=== PATIENT | female | born 1940 | race Caucasian/White ===

== ENCOUNTER 2017-06-12 10:16 | Day surgery (SDC) | payer MEDICARE, BC ==
[2017-06-12] MEDS ORDERED: Gatifloxacin 0.5% Ophth Soln 2.5 ML Bot EYERT SCH (10:30)
[2017-06-12] MEDS ORDERED: Sodium Chloride 0.9% 5 ML Syringe FLUSH PRN (10:30)
[2017-06-12] MEDS ORDERED: Lactated Ringers 1,000 ML IV SCH (10:30)
[2017-06-12] MEDS ORDERED: Albuterol/Ipratropium 3.0-0.5 MG/3 ML Neb Soln NEB ONE (10:50)
[2017-06-12] MEDS: Phenylephrine 10% Ophth Soln 5 ML Bot EYERT SCH ×3 (11:00→11:49)
[2017-06-12] MEDS ORDERED: Water For Irrigation,Sterile 1,500 ML Container IRR ONE (12:57)
[2017-06-12] MEDS ORDERED: Balanced Salt Solution Ophth Irrig 15 ML Bottle EYERT ONE (12:57)
[2017-06-12] MEDS ORDERED: Dexamethasone/Neomycin/Polymyxin B Ophth Oint 3.5 GM Tube EYERT ONE (12:58)
[2017-06-12] MEDS ORDERED: Balanced Salt Solution Plus Ophth Irrig 500 ML Bottle IOCULAR ONE (12:58)
[2017-06-12] MEDS ORDERED: Carbachol 0.01% Intraocular 1.5 ML Vial EYERT ONE (12:58)
[2017-06-12] MEDS ORDERED: EPINEPHrine 1 MG/ML SDV ONE (12:58)
[2017-06-12] MEDS ORDERED: Lidocaine 1% 10 ML MDV INJECT ONE (12:59)
[2017-06-12] MEDS ORDERED: Hyaluronate Sodium 1% 0.85 ML Syringe IOCULAR ONE (12:59)
[2017-06-12] MEDS ORDERED: Lidocaine 2% with EPINEPHrine 1:100,000 20 ML MDV INJECT ONE (12:59)
[2017-06-12] MEDS ORDERED: Tetracaine HCl/PF 0.5% 4 ML Bottle EYEBOTH ONE (13:00)
[2017-06-12 13:55] VITALS: BP 144/61
== END 2017-06-12 13:45 | disposition home or self-care (01) ==
LOC: KA.SDS 10:16
PROVIDERS: ATTEND Ophthalmology
DX: H25.811 Combined forms of age-related cataract, right eye (principal); J44.9 Chronic obstructive pulmonary disease, unspecified; I10 Essential (primary) hypertension; F32.9 Major depressive disorder, single episode, unspecified; Z79.899 Other long term (current) drug therapy; F17.210 Nicotine dependence, cigarettes, uncomplicated
CPT/HCPCS: 66984; A9270; J0171; J7120; 00142; C1780

== ENCOUNTER 2017-07-10 08:59 | Day surgery (SDC) | payer MEDICARE, BC ==
[2017-07-10] MEDS ORDERED: Gatifloxacin 0.5% Ophth Soln 2.5 ML Bot EYELF SCH (09:00)
[2017-07-10] MEDS ORDERED: Sodium Chloride 0.9% 5 ML Syringe FLUSH PRN (09:00)
[2017-07-10] MEDS ORDERED: Lactated Ringers 1,000 ML IV SCH (09:00)
[2017-07-10] MEDS: Phenylephrine 10% Ophth Soln 5 ML Bot EYELF SCH ×3 (09:11→09:42)
[2017-07-10] MEDS: Cyclopentolate 1% Opth Soln 2 ML Bottle EYELF SCH ×3 (09:21→09:52)
[2017-07-10] MEDS ORDERED: Balanced Salt Solution Ophth Irrig 15 ML Bottle EYELF ONE (10:47)
[2017-07-10] MEDS ORDERED: Balanced Salt Solution Plus Ophth Irrig 500 ML Bottle IOCULAR ONE (10:47)
[2017-07-10] MEDS ORDERED: Water For Irrigation,Sterile 1,500 ML Container IRR ONE (10:47)
[2017-07-10] MEDS ORDERED: Dexamethasone/Neomycin/Polymyxin B Ophth Oint 3.5 GM Tube EYELF ONE (10:48)
[2017-07-10] MEDS ORDERED: Lidocaine 2% with EPINEPHrine 1:100,000 20 ML MDV INJECT ONE (10:48)
[2017-07-10] MEDS ORDERED: EPINEPHrine 1 MG/ML SDV ONE (10:48)
[2017-07-10] MEDS ORDERED: Carbachol 0.01% Intraocular 1.5 ML Vial EYELF ONE (10:48)
[2017-07-10] MEDS ORDERED: Hyaluronate Sodium 1% 0.85 ML Syringe IOCULAR ONE (10:49)
[2017-07-10] MEDS ORDERED: Lidocaine 1% 10 ML MDV INJECT ONE (10:49)
[2017-07-10] MEDS ORDERED: Tetracaine HCl/PF 0.5% 4 ML Bottle EYEBOTH ONE (10:49)
[2017-07-10 11:20] VITALS: BP 143/61
--- NOTE | 2017-07-11 08:29 | OR ---
DATE OF SURGERY: 07/10/2017 SURGEON: Federico Polanco MD PREOPERATIVE DIAGNOSIS: Cataract, left eye. POSTOPERATIVE DIAGNOSIS: Cataract, left eye. OPERATION PERFORMED: Phacoemulsification with posterior chamber lens insertion, left eye. HISTORY: The patient presents with difficulty and increasing amount of blurred vision particularly with oncoming car light. Her vision is 20/100 plus only for the left eye, best corrected, and her type of cataract is listed as combined and it is also listed as senile. FINDINGS: The patient was taken to the operating room where appropriate anesthesia, sedation and monitoring were provided. A retrobulbar block was given on the left side. The eye was massaged and was found to be appropriately soft. The eye and eyelids were then prepped and draped in the usual sterile manner. A lid speculum was placed. A micro sharp blade was used to enter the anterior chamber inside the limbus inferior-temporally. Xylocaine was irrigated into the eye at this site. Healon was irrigated into the eye through this site. Then using a 2.85 mm corneal blade an entry was made into the anterior chamber just inside the limbus temporally. Healon was again irrigated into the eye. Then using a cystitome, the anterior capsulorrhexis was created. The lens nucleus was hydrodissected using a 27 gauge cannula and balanced salt solution. The phacoemulsification unit was introduced through the temporal site and the Alon spatula through the inferior temporal site. In so doing, the lens nucleus was phacoemulsified. The cortical fragments of the lens were removed using the irrigation aspiration unit. The posterior capsule was polished. Healon was irrigated into the eye. The posterior chamber lens was inserted and rotated into position inside the capsular bag. The Healon was irrigated out of the eye. Miostat was irrigated into the eye and the pupil rounded nicely. A single interrupted 10-0 Nylon suture was placed through the temporal corneal incision site. Balanced salt solution was irrigated into the eye. The wound was tested and found to be tight. Maxitrol ointment was placed into the patient's left eye. The eyelids were closed and an eye patch and barnard shield were placed. The patient left the operating room in good condition. /[id number]/MODL
== END 2017-07-10 11:43 | disposition home or self-care (01) ==
LOC: KA.SDS 08:59
PROVIDERS: ATTEND Ophthalmology
DX: H25.812 Combined forms of age-related cataract, left eye (principal); J44.9 Chronic obstructive pulmonary disease, unspecified; I10 Essential (primary) hypertension; F32.1 Major depressive disorder, single episode, moderate; G89.29 Other chronic pain; M54.5 Low back pain; Z79.899 Other long term (current) drug therapy
CPT/HCPCS: 66984; A9270; C1780; J0171; J7120; 00142

== ENCOUNTER 2017-11-23 14:55 | Inpatient (IN) | payer MEDICARE, BC ==
[2017-11-23] MEDS ORDERED: Lidocaine 2% 100 MG/5 ML Syringe IVPUSH PRN (15:18)
[2017-11-23] MEDS ORDERED: Nitroglycerin 0.4 MG Tab.SL SL PRN (15:18)
[2017-11-23] MEDS ORDERED: EPINEPHrine 1:10,000 1 MG/10 ML Syringe IVPUSH PRN (15:18)
[2017-11-23] MEDS ORDERED: Atropine 0.1 MG/ML 10 ML Syringe IVPUSH PRN (15:18)
[2017-11-23 16:58] LABS: CHLORIDE,CL 101 mmol/L (98-115); SODIUM,NA 141 mmol/L (136-145)
[2017-11-23] MEDS ORDERED: Albuterol 0.083% 2.5 MG/3 ML Neb Soln NEB PRN ×2 (17:21→17:55)
[2017-11-23] MEDS ORDERED: [UNRECOGNIZED DRUG - OTHER] TOP PRN (17:22)
[2017-11-23] MEDS ORDERED: Ibuprofen 400 MG Tab PO PRN (17:32)
[2017-11-23] MEDS ORDERED: Nicotine 7 MG/24 Hr Patch TRDERM PRN (17:55)
[2017-11-23] MEDS ORDERED: Metoprolol Tartrate 5 MG/5 ML SDV IVPUSH ONE (17:56)
[2017-11-23] MEDS ORDERED: Albuterol HFA 18 Gm Inhaler INH SCH (18:00)
[2017-11-23] MEDS ORDERED: Metoprolol Tartrate 5 MG/5 ML SDV ONE (18:06)
[2017-11-23] MEDS: Metoprolol Tartrate 25 MG Tab PO SCH (21:28)
[2017-11-23] MEDS ORDERED: Acetaminophen 500 MG Tab PO ONE (21:42)
[2017-11-23] MEDS ORDERED: diphenhydrAMINE 25 MG Cap PO ONE (21:48)
[2017-11-24 07:44] LABS: CHLORIDE,CL 102 mmol/L (98-115); SODIUM,NA 144 mmol/L (136-145)
[2017-11-24] MEDS ORDERED: Enoxaparin 40 MG/0.4 ML Syringe SUBCUT SCH (09:00)
[2017-11-24] MEDS ORDERED: [UNRECOGNIZED DRUG - REMARK] IH SCH (09:00)
[2017-11-24] MEDS: Sertraline 50 MG Tab PO SCH (09:16)
[2017-11-24] MEDS: Metoprolol Tartrate 25 MG Tab PO SCH (09:17)
--- NOTE | 2017-11-24 12:11 | PCM.PN ---
- General Info Date of Service: 11/24/17 Subjective Update: Mrs. Euceda reports ongoing weakness and fatigue, stable from prior, and no other concerns this morning. Eating and drinking without difficulty. Last evening had difficulty voiding and had catheter placed, but now voiding well. Breathing is stable, labored with exertion, and with occasional wheezing and shortness of breath. Denies other concerns, including fever, chills, headache, vision changes, lightheadedness, dizziness, chest pain, productive cough, abdominal pain, diarrhea. No nursing concerns. - Patient Data Vitals - Most Recent: Last Vital Signs Temp 36.3 C 11/24/17 11:00 Pulse 85 11/24/17 11:00 Resp 28 H 11/24/17 11:00 BP 100/65 11/24/17 11:00 Pulse Ox 96 11/24/17 11:00 Weight - Most Recent: 81.647 kg I&O - Last 24 Hours: Intake & Output 11/23/17 11/24/17 11/24/17 22:59 06:59 14:59 Intake Total 420 0 Output Total 50 600 Balance 370 -600 Lab Results Last 24 Hours: Laboratory Results - last 24 hr 11/23/17 11/23/17 11/23/17 Range/Units 16:25 16:25 16:25 WBC 7.7 (5.0-10.0) 10^3/uL RBC 4.27 (3.80-5.50) 10^6/uL Hgb 13.2 (12.0-16.0) g/dL Hct 40.9 (37.0-47.0) % MCV 95.8 H (82.0-92.0) fL MCH 30.8 (27.0-31.0) pg MCHC 32.2 (32.0-36.0) g/dL RDW 13.7 (11.5-14.5) % Plt Count 253 (150-300) 10^3/uL MPV 6.4 L (7.4-10.4) fL Neut % (Auto) 82.3 H (50.0-70.0) % Lymph % (Auto) 8.7 L (20.0-40.0) % Dane % (Auto) 7.7 (2.0-8.0) % Eos % (Auto) 0.6 L (1.0-3.0) % Baso % (Auto) 0.7 (0.0-1.0) % Neut # (Auto) 6.3 (2.5-7.0) 10^3/uL Lymph # (Auto) 0.7 L (1.0-4.0) 10^3/uL Dane # (Auto) 0.6 (0.1-0.8) 10^3/uL Eos # (Auto) 0.0 L (0.1-0.3) 10^3/uL Baso # (Auto) 0.1 (0.0-0.1) 10^3/uL Sodium 141 (136-145) mmol/L Potassium 4.2 (3.3-5.3) mmol/L Chloride 101 (98-115) mmol/L Carbon Dioxide 34.7 H (21.0-32.0) mmol/L BUN 23 (6-25) mg/dL Creatinine 0.58 (0.51-1.17) mg/dL Est Cr Clr Drug Dosing 86.24 mL/min Estimated GFR (MDRD) > 60 mL/min Glucose 136 H (70-110) mg/dL Calcium 9.4 (8.7-10.3) mg/dL Total Bilirubin 0.2 (0.2-1.0) mg/dL AST 15 (15-37) U/L ALT 16 (12-78) U/L Alkaline Phosphatase 47 (46-116) IU/L Troponin I 0.04 (0.00-0.070) ng/mL B-Natriuretic Peptide 212 H (0-100) pg/mL Total Protein 7.3 (6.4-8.2) g/dL Albumin 3.32 (3.00-4.80) g/dL TSH, Ultra Sensitive 0.590 (0.340-4.820) uIU/mL Specimen Type Urine Color (YELLOW) Urine Appearance (CLEAR) Urine pH (5.0-9.0) Ur Specific [place] (1.005-1.030) Urine Protein (NEGATIVE) mg/dL Urine Glucose (UA) (NEGATIVE) mg/dL Urine Ketones (NEGATIVE) mg/dL Urine Occult Blood (NEGATIVE) Urine Nitrite (NEGATIVE) Urine Bilirubin (NEGATIVE) Urine Urobilinogen (0.2-1.0) E.U./dL Ur Leukocyte Esterase (NEGATIVE) Urine RBC /HPF Urine WBC /HPF Ur Epithelial Cells /LPF Urine Bacteria (NONE TO FEW) /HPF 11/23/17 11/24/17 Range/Units 22:50 07:15 WBC (5.0-10.0) 10^3/uL RBC (3.80-5.50) 10^6/uL Hgb (12.0-16.0) g/dL Hct (37.0-47.0) % MCV (82.0-92.0) fL MCH (27.0-31.0) pg MCHC (32.0-36.0) g/dL RDW (11.5-14.5) % Plt Count (150-300) 10^3/uL MPV (7.4-10.4) fL Neut % (Auto) (50.0-70.0) % Lymph % (Auto) (20.0-40.0) % Dane % (Auto) (2.0-8.0) % Eos % (Auto) (1.0-3.0) % Baso % (Auto) (0.0-1.0) % Neut # (Auto) (2.5-7.0) 10^3/uL Lymph # (Auto) (1.0-4.0) 10^3/uL Dane # (Auto) (0.1-0.8) 10^3/uL Eos # (Auto) (0.1-0.3) 10^3/uL Baso # (Auto) (0.0-0.1) 10^3/uL Sodium 144 (136-145) mmol/L Potassium 4.1 (3.3-5.3) mmol/L Chloride 102 (98-115) mmol/L Carbon Dioxide 36.9 H (21.0-32.0) mmol/L BUN 22 (6-25) mg/dL Creatinine 0.58 (0.51-1.17) mg/dL Est Cr Clr Drug Dosing 86.24 mL/min Estimated GFR (MDRD) > 60 mL/min Glucose 109 (70-110) mg/dL Calcium 8.7 (8.7-10.3) mg/dL Total Bilirubin (0.2-1.0) mg/dL AST (15-37) U/L ALT (12-78) U/L Alkaline Phosphatase (46-116) IU/L Troponin I (0.00-0.070) ng/mL B-Natriuretic Peptide (0-100) pg/mL Total Protein (6.4-8.2) g/dL Albumin (3.00-4.80) g/dL TSH, Ultra Sensitive (0.340-4.820) uIU/mL Specimen Type Urinvoid Urine Color Yellow (YELLOW) Urine Appearance Clear (CLEAR) Urine pH 7.0 (5.0-9.0) Ur Specific [place] 1.015 (1.005-1.030) Urine Protein 30 H (NEGATIVE) mg/dL Urine Glucose (UA) Negative (NEGATIVE) mg/dL Urine Ketones Negative (NEGATIVE) mg/dL Urine Occult Blood Negative (NEGATIVE) Urine Nitrite Negative (NEGATIVE) Urine Bilirubin Small H (NEGATIVE) Urine Urobilinogen 0.2 (0.2-1.0) E.U./dL Ur Leukocyte Esterase Negative (NEGATIVE) Urine RBC 0-5 /HPF Urine WBC 0-5 /HPF Ur Epithelial Cells Rare /LPF Urine Bacteria Occasional (NONE TO FEW) /HPF Med Orders - Current: Current Medications Acetaminophen (Tylenol Extra Strength) 1,000 mg PO BEDTIME POP Acetaminophen (Tylenol) 325 mg PO Q6H PRN PRN Reason: Pain Albuterol (Proventil Neb Soln) 2.5 mg NEB Q4HRRT PRN PRN Reason: Shortness of Breath Atropine Sulfate (Atropine 0.1 Mg/Ml) 0 mg IVPUSH ASDIRECTED PRN PRN Reason: Heart Epinephrine HCl (Epinephrine 1:10,000) 1 mg IVPUSH ASDIRECTED PRN PRN Reason: Heart Lidocaine HCl (Xylocaine 2%) 0 mg IVPUSH ASDIRECTED PRN PRN Reason: Heart Melatonin (Melatonin) 6 mg PO BEDTIME POP Metoprolol Tartrate (Lopressor) 50 mg PO BID POP Nicotine (Habitrol) 7 mg TRDERM DAILY PRN PRN Reason: nicotine craving Nitroglycerin (Nitrostat) 0.4 mg SL ASDIRECTED PRN PRN Reason: Heart Non-Formulary (Stiolto Respimat) 0 each INH DAILY POP Rivaroxaban (Xarelto) 20 mg PO 1800 POP Sertraline HCl (Zoloft) 100 mg PO DAILY [facility] Last Admin: 11/24/17 09:16 Dose: 100 mg Sodium Chloride (Syrex Flush) 5 ml FLUSH Q8HR PRN PRN Reason: Keep Vein Open Discontinued Medications Acetaminophen (Tylenol Extra Strength) 1,000 mg PO ONETIME ONE Stop: 11/23/17 21:43 Last Admin: 11/23/17 22:07 Dose: 1,000 mg Albuterol (Ventolin Hfa) 0 gm INH Q4H [facility] Albuterol (Proventil Neb Soln) 2.5 mg NEB QIDRT PRN PRN Reason: Shortness of Breath Diphenhydramine HCl (Benadryl) 50 mg PO ONETIME ONE Stop: 11/23/17 21:49 Last Admin: 11/23/17 22:08 Dose: 50 mg Enoxaparin Sodium (Lovenox) 40 mg SUBCUT DAILY [facility] Last Admin: 11/24/17 09:17 Dose: 40 mg Ibuprofen (Motrin) 800 mg PO BIDMEALS PRN PRN Reason: PAIN Metoprolol Tartrate (Lopressor) 2.5 mg IVPUSH ONETIME ONE Stop: 11/23/17 17:57 Last Admin: 11/23/17 18:10 Dose: 2.5 mg Metoprolol Tartrate (Lopressor) 25 mg PO BID [facility] Last Admin: 11/24/17 09:17 Dose: 25 mg Metoprolol Tartrate (Lopressor) Confirm Administered Dose 5 mg .ROUTE .STK-MED ONE Stop: 11/23/17 18:07 Last Admin: 11/23/17 18:09 Dose: Not Given Non-FormularyRup (Rub) 1 applic TOP BID PRN PRN Reason: Pain - Exam Physical Findings Comments:: GENERAL: Well-appearing elderly white female sitting in wheelchair at bedside in no acute distress. HEENT: Normocephalic, atraumatic. Conjunctiva clear. Nares patent without discharge. Mucous membranes moist, posterior pharynx unremarkable. NECK: Supple, no masses. CV: Irregularly irregular, no murmurs, rubs, or gallops. 2+ radial pulses. PULMONARY: Normal effort, diminished airflow at bases, occasional scattered expiratory wheeze, no rales or rhonchi. ABDOMEN: Positive bowel sounds, soft, nontender, nondistended. EXTREMITIES: 1+ edema to mid-lala bilaterally, finger clubbing. MUSCULOSKELETAL: Moves all extremities well. NEUROLOGICAL: No obvious deficits. DERMATOLOGIC: No rashes or suspicious lesions in exposed areas. PSYCHIATRIC: Alert, interactive, mildly cantankerous affect. - Problem List Review Problem List Initiated/Reviewed/Updated: Yes - My Orders Last 24 Hours: My Active Orders 11/23/17 17:55 Albuterol [Proventil Neb Soln] 2.5 mg NEB Q4HRRT PRN Nicotine [Habitrol] 7 mg TRDERM DAILY PRN 11/23/17 18:00 PT Evaluation and Treatment [CONS] Routine 11/24/17 08:00 Chest wo Cont [CT] Routine 11/24/17 12:08 Acetaminophen [Tylenol] 325 mg PO Q6H PRN 11/24/17 18:00 Rivaroxaban [Xarelto] 20 mg PO 1800 11/24/17 21:00 Acetaminophen [Tylenol Extra Strength] 1,000 mg PO BEDTIME Melatonin 6 mg PO BEDTIME Metoprolol Tartrate [Lopressor] 50 mg PO BID - Plan Plan:: HPI summary: 77yoF with history notable for stage 4 COPD on oxygen, HTN, tobacco dependence, and medication nonadherence who [facility] and was noted to have tachycardia for which she was admitted and found to have new-onset atrial fibrillation with RVR. Hospitalization problems: # Atrial fibrillation with RVR: New onset with rate in the low-100s on presentation. Metoprolol IV 2.5mg given on 11/23 PM with improvement to pulse < 100 and started on metoprolol tartrate 11/23 PM. No obvious etiology: EKG unremarkable except atrial fibrillation, troponin negative, CBC/CMP/TSH unremarkable for etiology. CHADS-Vasc = 4. # Hypertension: Has been taking lisinopril 5mg as outpatient. BPs low-normal for which lisinopril held on admission. Furosemide on outpatient medication list , but patient confirmed she hasn't been taking.# Chronic hypoxic and hypercarbic respiratory failure: 3lpm via nasal cannula at baseline. Elevated CO2 on metabolic panel. At baseline. # COPD, stage 4 GOLD: Followed by pulmonology, Dr. Das, [facility]. Has not been using Stiolto as outpatient. No evidence of exacerbation. # Right hilar fullness/hx pulmonary nodules: Due for repeat CT chest, which was ordered to obtain today. # Debility - Increase metoprolol tartrate to 50mg po BID due to ongoing pulse spikes into the low-100s - Start rivaroxaban; Discussed indication for anticoagulation and she wishes to proceed with DOAC - Continue oxygen, Stiolto, albuterol prn - Await CT chest results - Physical therapy referral - Echocardiogram as outpatient Chronic, stable conditions: # OA: Tylenol prn. Ibuprofen discontinued due to initiation of anticoagulation. # Depression: Sertraline. # Insomnia: Takes Tylenol PM at home. Will continue Tylenol 1000mg qHS along with melatonin 6mg. # Tobacco dependence: Continues to smoke occasionally. Pre-contemplative stage of change. Nicotine patch prn. Hospitalization details: # FEN: No IVF. Electrolytes normal. Cardiac diet. # PPX: Therapeutic anticoagulation initiated, as above. # Code status: DNR. # Emergency contact: , who was updated by nursing staff this morning. # Disposition: Continue on inpatient status. Plan for discharge to SNF pending clinical improvement and stability and physical therapy assessment.
[2017-11-24] MEDS: STIOLTO RESPIMAT INH SCH (14:25)
[2017-11-24] MEDS ORDERED: Metoprolol Tartrate 25 MG Tab PO ONE (14:37)
[2017-11-24] MEDS: Rivaroxaban 10 MG Tab PO SCH (18:46)
[2017-11-24] MEDS: Melatonin 3 MG Tab PO SCH (21:01)
[2017-11-24] MEDS: Acetaminophen 500 MG Tab PO SCH (21:01)
[2017-11-24] MEDS: Metoprolol Tartrate 50 MG Tab PO SCH (21:02)
[2017-11-25] MEDS: Sertraline 50 MG Tab PO SCH (08:23)
[2017-11-25] MEDS: STIOLTO RESPIMAT INH SCH (08:37)
[2017-11-25] MEDS: Sodium Chloride 0.9% 5 ML Syringe FLUSH PRN (08:39)
[2017-11-25] MEDS: Metoprolol Tartrate 50 MG Tab PO SCH ×2 (10:25→20:21)
--- NOTE | 2017-11-25 11:47 | PCM.PN ---
- General Info Date of Service: 11/25/17 Subjective Update: Mrs. Euceda reports ongoing weakness and fatigue, stable from prior, and no other concerns this morning. Eating and drinking without difficulty. Hasn't been able to successfully void on her own since catheter removal yesterday. Denies this being an issue at home, but states she "tries going to the bathroom a lot, but doesn't go most of the time." Breathing is stable, labored with exertion, and with occasional wheezing and shortness of breath. states that she hasn't been compliant with "much of anything" at home lately and expresses concern over thinking he should have tried to get her in the [place] [facility] sooner, as he has had increasing difficulty caring for her at home. Nursing attempted straight catheterization, but there was subsequent clogging of the catheter. Physical therapy evaluated and noted significant debility. - Patient Data Vitals - Most Recent: Last Vital Signs Temp 36.3 C 11/25/17 11:00 Pulse 84 11/25/17 11:00 Resp 24 H 11/25/17 11:00 BP 96/67 11/25/17 11:00 Pulse Ox 97 11/25/17 11:00 Weight - Most Recent: 81.329 kg I&O - Last 24 Hours: Intake & Output 11/24/17 11/25/17 11/25/17 22:59 06:59 14:59 Intake Total 490 150 Output Total 0 0 Balance 490 150 Lab Results Last 24 Hours: Laboratory Results - last 24 hr 11/25/17 Range/Units 11:20 Specimen Type Urinfol Urine Color Yellow (YELLOW) Urine Appearance Clear (CLEAR) Urine pH 6.0 (5.0-9.0) Ur Specific [place] 1.025 (1.005-1.030) Urine Protein 100 H (NEGATIVE) mg/dL Urine Glucose (UA) Negative (NEGATIVE) mg/dL Urine Ketones Negative (NEGATIVE) mg/dL Urine Occult Blood Negative (NEGATIVE) Urine Nitrite Negative (NEGATIVE) Urine Bilirubin Small H (NEGATIVE) Urine Urobilinogen 0.2 (0.2-1.0) E.U./dL Ur Leukocyte Esterase Negative (NEGATIVE) Urine RBC 0-5 /HPF Urine WBC 5-10 H /HPF Ur Epithelial Cells Rare /LPF Urine Bacteria Occasional (NONE TO FEW) /HPF Hyaline Casts Moderate H (NEGATIVE) /LPF Urine Mucus Moderate H (NEGATIVE) /LPF Med Orders - Current: Current Medications Acetaminophen (Tylenol Extra Strength) 1,000 mg PO BEDTIME [facility] Last Admin: 11/24/17 21:01 Dose: 1,000 mg Acetaminophen (Tylenol) 325 mg PO Q6H PRN PRN Reason: Pain Albuterol (Proventil Neb Soln) 2.5 mg NEB Q4HRRT PRN PRN Reason: Shortness of Breath Last Admin: 11/24/17 21:06 Dose: 2.5 mg Atropine Sulfate (Atropine 0.1 Mg/Ml) 0 mg IVPUSH ASDIRECTED PRN PRN Reason: Heart Epinephrine HCl (Epinephrine 1:10,000) 1 mg IVPUSH ASDIRECTED PRN PRN Reason: Heart Lidocaine HCl (Xylocaine 2%) 0 mg IVPUSH ASDIRECTED PRN PRN Reason: Heart Melatonin (Melatonin) 6 mg PO BEDTIME [facility] Last Admin: 11/24/17 21:01 Dose: 6 mg Metoprolol Tartrate (Lopressor) 50 mg PO BID [facility] Last Admin: 11/25/17 10:25 Dose: 50 mg Nicotine (Habitrol) 7 mg TRDERM DAILY PRN PRN Reason: nicotine craving Nitroglycerin (Nitrostat) 0.4 mg SL ASDIRECTED PRN PRN Reason: Heart Stiolto Respimat (Own Med) 0 each INH DAILY [facility] Last Admin: 11/25/17 08:37 Dose: 2 each Rivaroxaban (Xarelto) 20 mg PO DAILY@1800 [facility] Last Admin: 11/24/17 18:46 Dose: 20 mg Sertraline HCl (Zoloft) 100 mg PO DAILY [facility] Last Admin: 11/25/17 08:23 Dose: 100 mg Sodium Chloride (Syrex Flush) 5 ml FLUSH Q8HR PRN PRN Reason: Keep Vein Open Last Admin: 11/25/17 08:39 Dose: 5 ml Discontinued Medications Acetaminophen (Tylenol Extra Strength) 1,000 mg PO ONETIME ONE Stop: 11/23/17 21:43 Last Admin: 11/23/17 22:07 Dose: 1,000 mg Albuterol (Ventolin Hfa) 0 gm INH Q4H [facility] Albuterol (Proventil Neb Soln) 2.5 mg NEB QIDRT PRN PRN Reason: Shortness of Breath Diphenhydramine HCl (Benadryl) 50 mg PO ONETIME ONE Stop: 11/23/17 21:49 Last Admin: 11/23/17 22:08 Dose: 50 mg Enoxaparin Sodium (Lovenox) 40 mg SUBCUT DAILY [facility] Last Admin: 11/24/17 09:17 Dose: 40 mg Ibuprofen (Motrin) 800 mg PO BIDMEALS PRN PRN Reason: PAIN Metoprolol Tartrate (Lopressor) 2.5 mg IVPUSH ONETIME ONE Stop: 11/23/17 17:57 Last Admin: 11/23/17 18:10 Dose: 2.5 mg Metoprolol Tartrate (Lopressor) 25 mg PO BID [facility] Last Admin: 11/24/17 09:17 Dose: 25 mg Metoprolol Tartrate (Lopressor) Confirm Administered Dose 5 mg .ROUTE .STK-MED ONE Stop: 11/23/17 18:07 Last Admin: 11/23/17 18:09 Dose: Not Given Metoprolol Tartrate (Lopressor) 25 mg PO ONETIME ONE Stop: 11/24/17 14:38 Last Admin: 11/24/17 14:57 Dose: 25 mg Non-FormularyRup (Rub) 1 applic TOP BID PRN PRN Reason: Pain - Exam Physical Findings Comments:: GENERAL: Well-appearing elderly white female lying in hospital bed in no acute distress. at bedside. HEENT: Normocephalic, atraumatic. Conjunctiva clear. Nares patent without discharge. Mucous membranes moist, posterior pharynx unremarkable. NECK: Supple, no masses. CV: Irregularly irregular, no murmurs, rubs, or gallops. 2+ radial pulses. PULMONARY: Normal effort, diminished airflow at bases, no wheezes, rales or rhonchi. ABDOMEN: Positive bowel sounds, soft, nontender, nondistended. EXTREMITIES: 1+ edema to mid-lala bilaterally, finger clubbing. MUSCULOSKELETAL: Moves all extremities well. NEUROLOGICAL: No obvious deficits. DERMATOLOGIC: No rashes or suspicious lesions in exposed areas. PSYCHIATRIC: Alert, interactive, mildly cantankerous affect. - Problem List Review Problem List Initiated/Reviewed/Updated: Yes - My Orders Last 24 Hours: My Active Orders 05/19/18 12:08 Acetaminophen [Tylenol] 325 mg PO Q6H PRN 11/24/17 18:00 Rivaroxaban [Xarelto] 20 mg PO DAILY@1800 11/24/17 19:13 Communication Order [RC] DAILY 11/24/17 21:00 Acetaminophen [Tylenol Extra Strength] 1,000 mg PO BEDTIME Melatonin 6 mg PO BEDTIME Metoprolol Tartrate [Lopressor] 50 mg PO BID 11/25/17 11:26 Urinary Catheter Assessment [RC] 0100,[id number],1700 11/25/17 11:30 Colvin Catheter Insertion [Insert Urinary Catheter] [OM.PC] Q24H - Plan Plan:: HPI summary: 77yoF with history notable for stage 4 COPD on oxygen, HTN, tobacco dependence, and medication nonadherence who presented to [facility] for generalized weakness and was noted to have tachycardia for which she was admitted and found to have new-onset atrial fibrillation with RVR. Hospitalization problems: # Atrial fibrillation with RVR: New onset with rate in the low-100s on presentation. Metoprolol IV 2.5mg given on 11/23 PM with improvement to pulse < 100 and started on metoprolol tartrate 11/23 PM. No obvious etiology: EKG unremarkable except atrial fibrillation, troponin negative, CBC/CMP/TSH unremarkable for etiology. CHADS-Vasc = 4. # Hypertension: Per , has infrequently been taking lisinopril 5mg as outpatient. BPs low-normal for which lisinopril held on admission. Furosemide on outpatient medication list, but patient confirmed she hasn't been taking. # Chronic hypoxic and hypercarbic respiratory failure: 3lpm via nasal cannula at baseline. Elevated CO2 on metabolic panel. At baseline. # COPD, stage 4 GOLD: Followed by pulmonology, Dr. Das, [facility]. Has not been using Stiolto as outpatient. No evidence of exacerbation. # Right hilar fullness/hx pulmonary nodules: Due for repeat CT chest, which was obtained on 11/24/17. Read not based on comparison to prior CT chest from at [facility], so will have that sent for re-evaluation based on comparison. # Acute urinary retention # Debility - Continue metoprolol tartrate 50mg po BID and increase to 75mg BID if ongoing RVR noted; Continue telemetry - Continue rivaroxaban; Discussed indication for anticoagulation with today - Continue oxygen, Stiolto, albuterol prn - Await CT chest results - Place Colvin catheter and obtain UA; No obvious pharmacologic etiology for retention and prior UA without evidence of infection; Query longstanding retention - Physical therapy consultation pending - Echocardiogram as outpatient Chronic, stable conditions: # OA: Tylenol prn. Ibuprofen discontinued due to initiation of anticoagulation. # Depression: Sertraline. # Insomnia: Takes Tylenol PM at home. Continue Tylenol 1000mg qHS along with melatonin 6mg. # Tobacco dependence: Continues to smoke occasionally. Pre-contemplative stage of change. Nicotine patch prn. Hospitalization details: # FEN: No IVF. Electrolytes normal. Cardiac diet. # PPX: Therapeutic anticoagulation, as above. # Code status: DNR. # Emergency contact: , who was updated at bedside this morning. # Disposition: Continue on inpatient status. Plan for discharge to SNF pending clinical improvement and stability and physical therapy assessment.
[2017-11-25] MEDS: Rivaroxaban 10 MG Tab PO SCH (18:06)
[2017-11-25] MEDS: Melatonin 3 MG Tab PO SCH (20:22)
[2017-11-25] MEDS: Acetaminophen 500 MG Tab PO SCH (20:22)
[2017-11-26] MEDS: Sertraline 50 MG Tab PO SCH (08:39)
[2017-11-26] MEDS: Metoprolol Tartrate 50 MG Tab PO SCH ×2 (08:39→20:14)
[2017-11-26] MEDS: Sodium Chloride 0.9% 5 ML Syringe FLUSH PRN (08:40)
[2017-11-26] MEDS: STIOLTO RESPIMAT INH SCH (08:40)
--- NOTE | 2017-11-26 12:27 | PCM.PN ---
- General Info Date of Service: 11/26/17 Subjective Update: Mrs. Euceda reports ongoing weakness, but no other concerns this morning. Eating and drinking without difficulty. Catheter in place for the past just about 24hrs. Breathing is stable, labored with exertion, and with occasional wheezing and shortness of breath. Nursing reports that telemetry often times showing an intermittently elevated rate compared with examination vitals. - Patient Data Vitals - Most Recent: Last Vital Signs Temp 36.2 C 11/26/17 10:55 Pulse 89 11/26/17 10:55 Resp 20 11/26/17 10:55 BP 94/59 L 11/26/17 10:55 Pulse Ox 94 L 11/26/17 10:55 Weight - Most Recent: 81.692 kg I&O - Last 24 Hours: Intake & Output 11/25/17 11/26/17 11/26/17 22:59 06:59 14:59 Intake Total 200 50 Output Total 125 150 Balance 75 -100 Med Orders - Current: Current Medications Acetaminophen (Tylenol Extra Strength) 1,000 mg PO BEDTIME [facility] Last Admin: 11/25/17 20:22 Dose: 1,000 mg Acetaminophen (Tylenol) 325 mg PO Q6H PRN PRN Reason: Pain Albuterol (Proventil Neb Soln) 2.5 mg NEB Q4HRRT PRN PRN Reason: Shortness of Breath Last Admin: 11/24/17 21:06 Dose: 2.5 mg Atropine Sulfate (Atropine 0.1 Mg/Ml) 0 mg IVPUSH ASDIRECTED PRN PRN Reason: Heart Epinephrine HCl (Epinephrine 1:10,000) 1 mg IVPUSH ASDIRECTED PRN PRN Reason: Heart Lidocaine HCl (Xylocaine 2%) 0 mg IVPUSH ASDIRECTED PRN PRN Reason: Heart Melatonin (Melatonin) 6 mg PO BEDTIME [facility] Last Admin: 11/25/17 20:22 Dose: 6 mg Metoprolol Tartrate (Lopressor) 50 mg PO BID [facility] Last Admin: 11/26/17 08:39 Dose: 50 mg Nicotine (Habitrol) 7 mg TRDERM DAILY PRN PRN Reason: nicotine craving Nitroglycerin (Nitrostat) 0.4 mg SL ASDIRECTED PRN PRN Reason: Heart Stiolto Respimat (Own Med) 0 each INH DAILY [facility] Last Admin: 11/26/17 08:40 Dose: 1 each Rivaroxaban (Xarelto) 20 mg PO DAILY@1800 [facility] Last Admin: 11/25/17 18:06 Dose: 20 mg Sertraline HCl (Zoloft) 100 mg PO DAILY [facility] Last Admin: 11/26/17 08:39 Dose: 100 mg Sodium Chloride (Syrex Flush) 5 ml FLUSH Q8HR PRN PRN Reason: Keep Vein Open Last Admin: 11/26/17 08:40 Dose: 5 ml Discontinued Medications Acetaminophen (Tylenol Extra Strength) 1,000 mg PO ONETIME ONE Stop: 11/23/17 21:43 Last Admin: 11/23/17 22:07 Dose: 1,000 mg Albuterol (Ventolin Hfa) 0 gm INH Q4H [facility] Albuterol (Proventil Neb Soln) 2.5 mg NEB QIDRT PRN PRN Reason: Shortness of Breath Diphenhydramine HCl (Benadryl) 50 mg PO ONETIME ONE Stop: 11/23/17 21:49 Last Admin: 11/23/17 22:08 Dose: 50 mg Enoxaparin Sodium (Lovenox) 40 mg SUBCUT DAILY [facility] Last Admin: 11/24/17 09:17 Dose: 40 mg Ibuprofen (Motrin) 800 mg PO BIDMEALS PRN PRN Reason: PAIN Metoprolol Tartrate (Lopressor) 2.5 mg IVPUSH ONETIME ONE Stop: 11/23/17 17:57 Last Admin: 11/23/17 18:10 Dose: 2.5 mg Metoprolol Tartrate (Lopressor) 25 mg PO BID [facility] Last Admin: 11/24/17 09:17 Dose: 25 mg Metoprolol Tartrate (Lopressor) Confirm Administered Dose 5 mg .ROUTE .STK-MED ONE Stop: 11/23/17 18:07 Last Admin: 11/23/17 18:09 Dose: Not Given Metoprolol Tartrate (Lopressor) 25 mg PO ONETIME ONE Stop: 11/24/17 14:38 Last Admin: 11/24/17 14:57 Dose: 25 mg Non-FormularyRup (Rub) 1 applic TOP BID PRN PRN Reason: Pain - Exam Physical Findings Comments:: GENERAL: Well-appearing elderly white female sitting in bedside chair in no acute distress. and daughter at bedside. HEENT: Normocephalic, atraumatic. Conjunctiva clear. Nares patent without discharge. Mucous membranes moist, posterior pharynx unremarkable. NECK: Supple, no masses. CV: Irregularly irregular, rate 82 upon auscultation, no murmurs, rubs, or gallops. 2+ radial pulses. PULMONARY: Normal effort, diminished airflow at bases, scattered expiratory wheeze, no rales or rhonchi. ABDOMEN: Positive bowel sounds, soft, nontender, nondistended. EXTREMITIES: 1+ edema to mid-lala bilaterally, finger clubbing. MUSCULOSKELETAL: Moves all extremities well. NEUROLOGICAL: No obvious deficits. DERMATOLOGIC: No rashes or suspicious lesions in exposed areas. PSYCHIATRIC: Alert, interactive, mildly cantankerous affect. - Problem List Review Problem List Initiated/Reviewed/Updated: Yes - My Orders Last 24 Hours: My Active Orders 11/25/17 11:30 Colvin Catheter Insertion [Insert Urinary Catheter] [OM.PC] Q24H 11/26/17 11:30 Colvin Catheter Insertion [Insert Urinary Catheter] [OM.PC] Q24H - Plan Plan:: HPI summary: 77yoF with history notable for stage 4 COPD on oxygen, HTN, tobacco dependence, and medication nonadherence who [facility] and was noted to have tachycardia for which she was admitted and found to have new-onset atrial fibrillation with RVR. Hospitalization problems and plan: # Atrial fibrillation with RVR: New onset with rate in the low-100s on presentation. Metoprolol IV 2.5mg given on 11/23 PM with improvement to pulse < 100 and started on metoprolol tartrate 11/23 PM. No obvious etiology: EKG unremarkable except atrial fibrillation, troponin negative, CBC/CMP/TSH unremarkable for etiology. CHADS-Vasc = 4. # Hypertension: Per , has infrequently been taking lisinopril 5mg as outpatient. BPs low-normal for which lisinopril held on admission. Furosemide on outpatient medication list, but patient confirmed she hasn't been taking. BPs continue to be low. # Chronic hypoxic and hypercarbic respiratory failure: 3lpm via nasal cannula at baseline. Elevated CO2 on metabolic panel. At baseline. # COPD, stage 4 GOLD: Followed by pulmonology, Dr. Das, [facility]. Has not been using Stiolto as outpatient. No evidence of exacerbation. # Right hilar fullness/hx pulmonary nodules: Due for repeat CT chest, which was obtained on 11/24/17. Read based on comparison to prior CT chest from 11/21/16 at [place] is stable. # Acute urinary retention # Debility - Continue metoprolol tartrate 50mg po BID and given minimal improvement with increased dose in the past 24hrs, will also add diltiazem 30mg q8h and continue monitoring - Continue rivaroxaban - Continue oxygen, Stiolto, albuterol prn - Continue Colvin catheter for one more day; No obvious pharmacologic etiology for retention and prior UA without evidence of infection; Query longstanding retention - Echocardiogram as outpatient Chronic, stable conditions: # OA: Tylenol prn. Ibuprofen discontinued due to initiation of anticoagulation. # Depression: Sertraline. # Insomnia: Takes Tylenol PM at home. Continue Tylenol 1000mg qHS along with melatonin 6mg. # Tobacco dependence: Continues to smoke occasionally per . Stated to respiratory therapy today that she quit 2 weeks ago. Nicotine patch prn. Hospitalization details: # FEN: No IVF. Electrolytes normal. Cardiac diet. # PPX: Therapeutic anticoagulation, as above. # Code status: DNR. # Emergency contact: , who was updated at bedside this morning. # Disposition: Continue on inpatient status. Plan for discharge to SNF tomorrow.
[2017-11-26] MEDS: Diltiazem IR 30 MG Tab PO SCH ×2 (14:34→21:18)
[2017-11-26] MEDS: Acetaminophen 325 MG Tab PO PRN (16:17)
[2017-11-26] MEDS: Rivaroxaban 10 MG Tab PO SCH (17:50)
[2017-11-26] MEDS: Acetaminophen 500 MG Tab PO SCH (20:15)
[2017-11-26] MEDS: Melatonin 3 MG Tab PO SCH (20:15)
[2017-11-27] MEDS: Diltiazem IR 30 MG Tab PO SCH ×3 (05:59→22:40)
[2017-11-27] MEDS: STIOLTO RESPIMAT INH SCH (08:48)
[2017-11-27] MEDS: Sertraline 50 MG Tab PO SCH (08:49)
--- NOTE | 2017-11-27 10:51 | PCM.PN ---
- General Info Date of Service: 11/27/17 - Review of Systems General: Reports: No Symptoms HEENT: Reports: No Symptoms Pulmonary: Reports: No Symptoms Cardiovascular: Reports: Palpitations, Dyspnea on Exertion. Denies: Chest Pain , Edema, Lightheadedness Gastrointestinal: Reports: No Symptoms Genitourinary: Reports: Retention. Denies: Burning, Flank Pain Musculoskeletal: Reports: No Symptoms Skin: Reports: No Symptoms Neurological: Reports: No Symptoms Psychiatric: Reports: No Symptoms - Patient Data Vitals - Most Recent: Last Vital Signs Temp 97.0 F 11/27/17 06:45 Pulse 88 11/27/17 06:45 Resp 20 11/27/17 06:45 BP 98/52 L 11/27/17 06:45 Pulse Ox 98 11/27/17 06:45 Weight - Most Recent: 181 lb 6 oz I&O - Last 24 Hours: Intake & Output 11/26/17 11/27/17 11/27/17 22:59 06:59 14:59 Intake Total 300 0 Output Total 200 100 Balance 100 -100 Med Orders - Current: Current Medications Acetaminophen (Tylenol Extra Strength) 1,000 mg PO BEDTIME [facility] Last Admin: 11/26/17 20:15 Dose: 1,000 mg Acetaminophen (Tylenol) 325 mg PO Q6H PRN PRN Reason: Pain Albuterol (Proventil Neb Soln) 2.5 mg NEB Q4HRRT PRN PRN Reason: Shortness of Breath Last Admin: 11/24/17 21:06 Dose: 2.5 mg Diltiazem HCl (Cardizem) 30 mg PO Q8HR [facility] Last Admin: 11/27/17 05:59 Dose: Not Given Melatonin (Melatonin) 6 mg PO BEDTIME [facility] Last Admin: 11/26/17 20:15 Dose: 6 mg Metoprolol Tartrate (Lopressor) 50 mg PO BID [facility] Last Admin: 11/26/17 20:14 Dose: 50 mg Nicotine (Habitrol) 7 mg TRDERM DAILY PRN PRN Reason: nicotine craving Stiolto Respimat (Own Med) 0 each INH DAILY [facility] Last Admin: 11/27/17 08:48 Dose: 2 each Rivaroxaban (Xarelto) 20 mg PO DAILY@1800 [facility] Last Admin: 11/26/17 17:50 Dose: 20 mg Sertraline HCl (Zoloft) 100 mg PO DAILY [facility] Last Admin: 11/27/17 08:49 Dose: 100 mg Sodium Chloride (Syrex Flush) 5 ml FLUSH Q8HR PRN PRN Reason: Keep Vein Open Last Admin: 11/26/17 08:40 Dose: 5 ml Discontinued Medications Acetaminophen (Tylenol Extra Strength) 1,000 mg PO ONETIME ONE Stop: 11/23/17 21:43 Last Admin: 11/23/17 22:07 Dose: 1,000 mg Albuterol (Ventolin Hfa) 0 gm INH Q4H [facility] Albuterol (Proventil Neb Soln) 2.5 mg NEB QIDRT PRN PRN Reason: Shortness of Breath Atropine Sulfate (Atropine 0.1 Mg/Ml) 0 mg IVPUSH ASDIRECTED PRN PRN Reason: Heart Diphenhydramine HCl (Benadryl) 50 mg PO ONETIME ONE Stop: 11/23/17 21:49 Last Admin: 11/23/17 22:08 Dose: 50 mg Enoxaparin Sodium (Lovenox) 40 mg SUBCUT DAILY [facility] Last Admin: 11/24/17 09:17 Dose: 40 mg Epinephrine HCl (Epinephrine 1:10,000) 1 mg IVPUSH ASDIRECTED PRN PRN Reason: Heart Ibuprofen (Motrin) 800 mg PO BIDMEALS PRN PRN Reason: PAIN Lidocaine HCl (Xylocaine 2%) 0 mg IVPUSH ASDIRECTED PRN PRN Reason: Heart Metoprolol Tartrate (Lopressor) 2.5 mg IVPUSH ONETIME ONE Stop: 11/23/17 17:57 Last Admin: 11/23/17 18:10 Dose: 2.5 mg Metoprolol Tartrate (Lopressor) 25 mg PO BID [facility] Last Admin: 11/24/17 09:17 Dose: 25 mg Metoprolol Tartrate (Lopressor) Confirm Administered Dose 5 mg .ROUTE .STK-MED ONE Stop: 11/23/17 18:07 Last Admin: 11/23/17 18:09 Dose: Not Given Metoprolol Tartrate (Lopressor) 25 mg PO ONETIME ONE Stop: 11/24/17 14:38 Last Admin: 11/24/17 14:57 Dose: 25 mg Nitroglycerin (Nitrostat) 0.4 mg SL ASDIRECTED PRN PRN Reason: Heart Non-FormularyRup (Rub) 1 applic TOP BID PRN PRN Reason: Pain Stiolto Respimat (Own Med) 0 each INH DAILY [facility] Last Admin: 11/26/17 08:40 Dose: 1 each - Exam Quality Assessment: Supplemental Oxygen General: Alert, Oriented, Cooperative. No: No Acute Distress Neck: Supple Lungs: Clear to Auscultation, Normal Respiratory Effort Cardiovascular: Irregular Rhythm, Tachycardia GI/Abdominal Exam: Soft. No: Distended (Female) Exam: Deferred Back Exam: CVA Tenderness (L), CVA Tenderness (R), Other (Back pain) Extremities: No Pedal Edema Peripheral Pulses: 2+: Radial (L), Radial (R) Neurological: No New Focal Deficit Psy/Mental Status: Alert, Normal Affect, Normal Mood - Problem List Review Problem List Initiated/Reviewed/Updated: Yes - My Orders Last 24 Hours: My Active Orders 11/27/17 10:39 Bethanechol [Urecholine] 10 mg PO TID - Plan Plan:: HPI summary: 77yoF with history notable for stage 4 COPD on oxygen, HTN, tobacco dependence, and medication nonadherence who [facility] and was noted to have tachycardia for which she was admitted and found to have new-onset atrial fibrillation with RVR. Hospitalization problems and plan: # Atrial fibrillation with RVR: New onset with rate in the low-100s on presentation. Metoprolol IV 2.5mg given on 11/23 PM with improvement to pulse < 100 and started on metoprolol tartrate 11/23 PM. No obvious etiology: EKG unremarkable except atrial fibrillation, troponin negative, CBC/CMP/TSH unremarkable for etiology. CHADS-Vasc = 4. # Hypertension: Per , has infrequently been taking lisinopril 5mg as outpatient. BPs low-normal for which lisinopril held on admission. Furosemide on outpatient medication list, but patient confirmed she hasn't been taking. BPs continue to be low. # Chronic hypoxic and hypercarbic respiratory failure: 3lpm via nasal cannula at baseline. Elevated CO2 on metabolic panel. At baseline. # COPD, stage 4 GOLD: Followed by pulmonology, Dr. Das, [facility]. Has not been using Stiolto as outpatient. No evidence of exacerbation. # Right hilar fullness/hx pulmonary nodules: Due for repeat CT chest, which was obtained on 11/24/17. Read based on comparison to prior CT chest from 11/21/16 at [place] is stable. # Acute urinary retention # Debility - In light of severe COPD and low BP will hold BB and attempt to use mono Diltiazem for rate control with holding parameters, - Continue rivaroxaban - Continue oxygen, Stiolto, albuterol prn - Continue Colvin catheter, for now, add Bethanechol then trial without catheter in the a.m. no obvious pharmacologic etiology for retention and prior UA without evidence of infection; does has history of a AUR years ago per pt report - Echocardiogram as outpatient Chronic, stable conditions: # OA: Tylenol prn. Ibuprofen discontinued due to initiation of anticoagulation. # Depression: Sertraline. # Insomnia: Takes Tylenol PM at home. Continue Tylenol 1000mg qHS along with melatonin 6mg. # Tobacco dependence: Continues to smoke occasionally per . Stated to respiratory therapy today that she quit 2 weeks ago. Nicotine patch prn. Hospitalization details: # FEN: No IVF. Electrolytes normal. Cardiac diet. # PPX: Therapeutic anticoagulation, as above. # Code status: DNR. # Emergency contact: , who was updated at bedside this morning. # Disposition: Continue on inpatient status. Plan for discharge to SNF tomorrow.
[2017-11-27] MEDS: Metoprolol Tartrate 50 MG Tab PO SCH ×2 (11:34→21:40)
[2017-11-27] MEDS: Acetaminophen 325 MG Tab PO PRN (11:35)
[2017-11-27] MEDS ORDERED: Nitroglycerin 0.4 MG Tab.SL SL PRN (12:16)
[2017-11-27] MEDS ORDERED: Atropine 0.1 MG/ML 10 ML Syringe IVPUSH PRN (12:16)
[2017-11-27] MEDS ORDERED: EPINEPHrine 1:10,000 1 MG/10 ML Syringe IVPUSH PRN (12:16)
[2017-11-27] MEDS ORDERED: Lidocaine 2% 100 MG/5 ML Syringe IVPUSH PRN (12:16)
[2017-11-27] MEDS ORDERED: Acetaminophen 650 MG Tab.ER PO PRN (12:51)
[2017-11-27] MEDS: Rivaroxaban 10 MG Tab PO SCH (17:50)
[2017-11-27] MEDS: Melatonin 3 MG Tab PO SCH (21:40)
[2017-11-27] MEDS: Acetaminophen 500 MG Tab PO SCH (21:40)
[2017-11-28] MEDS: Diltiazem IR 30 MG Tab PO SCH (06:22)
[2017-11-28] MEDS: Sertraline 50 MG Tab PO SCH (08:08)
[2017-11-28] MEDS: STIOLTO RESPIMAT INH SCH (08:36)
[2017-11-28] MEDS: Metoprolol Tartrate 50 MG Tab PO SCH (08:37)
--- NOTE | 2017-11-28 11:14 | PCM.DCSUM1 ---
Discharge Summary - Hospital Course Brief History: 77yoF with history notable for stage 4 COPD on oxygen, HTN, tobacco dependence, and medication nonadherence who presented to [facility] for generalized weakness and was noted to have tachycardia for which she was admitted and found to have new-onset atrial fibrillation with RVR. - Discharge Data Discharge Date: 11/28/17 Discharge Disposition: DC/Tfer to [facility] Condition: Good - Patient Summary/Data Complications: atrial fibrillation with rapid ventricular response requiring calcium channel blockers and beta blockers. She also had acute urinary retention requiring Colvin catheterization and medication Consults: Consultations 11/23/17 15:04 Consult to [facility] [CONS] Routine 11/23/17 18:00 PT Evaluation and Treatment [CONS] Routine Recommended Follow-up Testing/Procedures: need outpatient echocardiogram - Patient Instructions Diet: Heart Healthy Diet Activity: As Tolerated Driving: Do Not Drive Showering/Bathing: May Shower Notify Provider of: Fever, Nausea and/or Vomiting Other/Special Instructions: on after for any bleeding gums, blood in urine,. will need Colvin catheter if not able to void - Discharge Plan Prescriptions/Med Rec: Albuterol [Proventil Neb Soln] 2.5 mg NEB Q4HRRT PRN #30 neb PRN Reason: Shortness Of Breath Diltiazem IR [Cardizem] 30 mg PO Q8HR #90 tablet Acetaminophen [Tylenol Arthritis Pain] 650 mg PO Q8H PRN #90 tab.er PRN Reason: pain Albuterol [Ventolin HFA] 1 puff INH Q4H PRN #1 puff PRN Reason: Wheezing Bethanechol Chloride [Urecholine] 10 mg PO TID #30 tablet Melatonin 6 mg PO BEDTIME #60 tablet Metoprolol Tartrate [Lopressor] 25 mg PO BID #60 tablet Nicotine [Habitrol] 7 mg TRDERM DAILY #30 patch Rivaroxaban [Xarelto] 20 mg PO DAILY@1800 #60 tablet Rup Rub 1 applic TOP BID PRN #1 PRN Reason: Pain Sertraline [Zoloft] 100 mg PO DAILY #30 tablet Home Medications: Home Meds Albuterol [Proventil HFA] 6.7 gm INH Q4H 07/06/17 [History] Albuterol [Proventil Neb Soln] 2.5 mg NEB QIDRT PRN 07/06/17 [History] Sertraline [Zoloft] 100 mg PO DAILY 07/06/17 [History] Acetaminophen [Tylenol Arthritis Pain] 650 mg PO Q8H PRN #90 tab.er 11/28/17 [Rx ] Albuterol [Proventil Neb Soln] 2.5 mg NEB Q4HRRT PRN #30 neb 11/28/17 [Rx] Albuterol [Ventolin HFA] 1 puff INH Q4H PRN #1 puff 11/28/17 [Rx] Bethanechol Chloride [Urecholine] 10 mg PO TID #30 tablet 11/28/17 [Rx] Diltiazem IR [Cardizem] 30 mg PO Q8HR #90 tablet 11/28/17 [Rx] Melatonin 6 mg PO BEDTIME #60 tablet 11/28/17 [Rx] Metoprolol Tartrate [Lopressor] 25 mg PO BID #60 tablet 11/28/17 [Rx] Nicotine [Habitrol] 7 mg TRDERM DAILY #30 patch 11/28/17 [Rx] Rivaroxaban [Xarelto] 20 mg PO DAILY@1800 #60 tablet 11/28/17 [Rx] Rup Rub 1 applic TOP BID PRN #1 11/28/17 [Rx] Sertraline [Zoloft] 100 mg PO DAILY #30 tablet 11/28/17 [Rx] - Discharge Summary/Plan Comment DC Time >30 min.: Yes Discharge Summary/Plan Comment: final diagnosis Atrial fibrillation, new onset, CHADS-Vasc = 4. Acute urinary retention, COPD, stage IV GOLD Medication noncompliance, Debility, HTN OA Depression Insomnia Tobacco dependence hospital course she was admitted with atrial fibrillation new onset with RVR requiring IV metoprolol, calcium channel sofi EKG telemetry. Her troponin was negative. started on factor X A inhibitor anticoagulation and she tolerated it well. Ibuprofen was discontinued. He did have significant breakthrough RVR however eventually much controlled 70s to 80s upon discharge. she did have some low blood pressures however asymptomatic. she was significantly noncompliant with both respiratory and cardiac medications prior to admission, does have chronic hypoxic and hypercarbic respiratory failure acquired 3lpm via nasal cannula at baseline. Elevated CO2 on metabolic panel--at baseline. Has not been using Stiolto as outpatient. No evidence of exacerbation during this hospital stay. she did have a chest x-ray was demonstrated right hilar fullness/hx pulmonary nodules: Due for repeat CT chest, which was obtained on 11/24/17. Read based on comparison to prior CT chest from 11/21/16 at [place] is stable. Patient he did have some acute urinary retention requiring Colvin catheterization with failed trial without catheter however Bethanacol was given and patient voided spontaneously on discharge with bladder scan 89 mL post void residual. medication Adjustments and changes Xarelato (newly added) Bethanacol, (newly added) consider discontinue in 1 week if spontaneously voiding discontinue lisinopril metoprolol tartrate (newly added) Diltiazem (newly added) Habitrol (newly added) Discontinue ibuprofen recommendation at follow-up, outpatient echocardiogram - Patient Data Vitals - Most Recent: Last Vital Signs Temp 97.8 F 11/28/17 06:50 Pulse 82 11/28/17 08:37 Resp 18 11/28/17 06:50 BP 102/64 11/28/17 08:37 Pulse Ox 96 11/28/17 06:50 Weight - Most Recent: 182 lb 1 oz I&O - Last 24 hours: Intake & Output 11/27/17 11/28/17 11/28/17 22:59 06:59 14:59 Intake Total 100 100 Output Total 200 200 Balance -100 -100 Med Orders - Current: Current Medications Acetaminophen (Tylenol Extra Strength) 1,000 mg PO BEDTIME [facility] Last Admin: 11/27/17 21:40 Dose: 1,000 mg Acetaminophen (Tylenol Arthritis Pain) 650 - 1,300 mg PO Q8H PRN PRN Reason: pain Albuterol (Proventil Neb Soln) 2.5 mg NEB Q4HRRT PRN PRN Reason: Shortness of Breath Last Admin: 11/24/17 21:06 Dose: 2.5 mg Atropine Sulfate (Atropine 0.1 Mg/Ml) 0 mg IVPUSH ASDIRECTED PRN PRN Reason: Heart Bethanechol Chloride (Urecholine) 10 mg PO TID [facility] Last Admin: 11/28/17 08:08 Dose: 10 mg Diltiazem HCl (Cardizem) 30 mg PO Q8HR [facility] Last Admin: 11/28/17 06:22 Dose: 30 mg Epinephrine HCl (Epinephrine 1:10,000) 1 mg IVPUSH ASDIRECTED PRN PRN Reason: Heart Lidocaine HCl (Xylocaine 2%) 0 mg IVPUSH ASDIRECTED PRN PRN Reason: Heart Melatonin (Melatonin) 6 mg PO BEDTIME [facility] Last Admin: 11/27/17 21:40 Dose: 6 mg Metoprolol Tartrate (Lopressor) 50 mg PO BID [facility] Last Admin: 11/28/17 08:37 Dose: 50 mg Nicotine (Habitrol) 7 mg TRDERM DAILY PRN PRN Reason: nicotine craving Nitroglycerin (Nitrostat) 0.4 mg SL ASDIRECTED PRN PRN Reason: Heart Stiolto Respimat (Own Med) 0 each INH DAILY [facility] Last Admin: 11/28/17 08:36 Dose: 2 each Rivaroxaban (Xarelto) 20 mg PO DAILY@1800 [facility] Last Admin: 11/27/17 17:50 Dose: 20 mg Sertraline HCl (Zoloft) 100 mg PO DAILY [facility] Last Admin: 11/28/17 08:08 Dose: 100 mg Sodium Chloride (Syrex Flush) 5 ml FLUSH Q8HR PRN PRN Reason: Keep Vein Open Last Admin: 11/26/17 08:40 Dose: 5 ml Discontinued Medications Acetaminophen (Tylenol Extra Strength) 1,000 mg PO ONETIME ONE Stop: 11/23/17 21:43 Last Admin: 11/23/17 22:07 Dose: 1,000 mg Acetaminophen (Tylenol) 325 mg PO Q6H PRN PRN Reason: Pain Last Admin: 11/27/17 11:35 Dose: 325 mg Albuterol (Ventolin Hfa) 0 gm INH Q4H [facility] Albuterol (Proventil Neb Soln) 2.5 mg NEB QIDRT PRN PRN Reason: Shortness of Breath Atropine Sulfate (Atropine 0.1 Mg/Ml) 0 mg IVPUSH ASDIRECTED PRN PRN Reason: Heart Diphenhydramine HCl (Benadryl) 50 mg PO ONETIME ONE Stop: 11/23/17 21:49 Last Admin: 11/23/17 22:08 Dose: 50 mg Enoxaparin Sodium (Lovenox) 40 mg SUBCUT DAILY [facility] Last Admin: 11/24/17 09:17 Dose: 40 mg Epinephrine HCl (Epinephrine 1:10,000) 1 mg IVPUSH ASDIRECTED PRN PRN Reason: Heart Ibuprofen (Motrin) 800 mg PO BIDMEALS PRN PRN Reason: PAIN Lidocaine HCl (Xylocaine 2%) 0 mg IVPUSH ASDIRECTED PRN PRN Reason: Heart Metoprolol Tartrate (Lopressor) 2.5 mg IVPUSH ONETIME ONE Stop: 11/23/17 17:57 Last Admin: 11/23/17 18:10 Dose: 2.5 mg Metoprolol Tartrate (Lopressor) 25 mg PO BID [facility] Last Admin: 11/24/17 09:17 Dose: 25 mg Metoprolol Tartrate (Lopressor) Confirm Administered Dose 5 mg .ROUTE .STK-MED ONE Stop: 11/23/17 18:07 Last Admin: 11/23/17 18:09 Dose: Not Given Metoprolol Tartrate (Lopressor) 25 mg PO ONETIME ONE Stop: 11/24/17 14:38 Last Admin: 11/24/17 14:57 Dose: 25 mg Nitroglycerin (Nitrostat) 0.4 mg SL ASDIRECTED PRN PRN Reason: Heart Non-FormularyRup (Rub) 1 applic TOP BID PRN PRN Reason: Pain Stiolto Respimat (Own Med) 0 each INH DAILY [facility] Last Admin: 11/26/17 08:40 Dose: 1 each
[2017-11-28 11:35] VITALS: BP 116/70
== END 2017-11-28 13:10 | DRG 309 ==
LOC: KA.MS 15:58
PROVIDERS: ADMIT Physician Assistant Medical; ATTEND Family Medicine
PROC: 0T9B70Z Drainage of Bladder with Drainage Device, Via Natural or Artificial Opening (ICD-10-PCS; principal; 2017-11-25)
DX: I48.91 Unspecified atrial fibrillation (principal); J96.11 Chronic respiratory failure with hypoxia; J96.12 Chronic respiratory failure with hypercapnia; R33.9 Retention of urine, unspecified; J44.9 Chronic obstructive pulmonary disease, unspecified; I10 Essential (primary) hypertension; R53.81 Other malaise; M19.90 Unspecified osteoarthritis, unspecified site; F32.9 Major depressive disorder, single episode, unspecified; G47.00 Insomnia, unspecified; F17.200 Nicotine dependence, unspecified, uncomplicated; Z99.81 Dependence on supplemental oxygen; Z91.14 Patient's other noncompliance with medication regimen
CPT/HCPCS: 36415; 51702; 51798; 71046; 71250; 80048; 80053; 81001; 83880; 84443; 84484; 85025; 93005; 94640; 97162-GP; A9270-GY; J1650; J3490; J7620-GY

== ENCOUNTER 2017-12-03 10:40 | Inpatient (IN) | payer MEDICARE, BC ==
[2017-12-03] MEDS ORDERED: Albuterol/Ipratropium 3.0-0.5 MG/3 ML Neb Soln NEB ONE (11:01)
[2017-12-03 11:28] LABS: CHLORIDE,CL 100 mmol/L (98-115); SODIUM,NA 143 mmol/L (136-145)
[2017-12-03] MEDS ORDERED: Metoprolol Tartrate 5 MG/5 ML SDV IVPUSH ONE (12:13)
[2017-12-03] MEDS ORDERED: Metoprolol Tartrate 5 MG/5 ML SDV ONE (12:15)
[2017-12-03] MEDS ORDERED: Sodium Chloride 0.9% 1,000 ML IV SCH (12:15)
[2017-12-03] MEDS ORDERED: LORazepam 2 MG/ML SDV IVPUSH PRN (14:38)
--- NOTE | 2017-12-03 14:44 | PCM.HP ---
H&P History of Present Illness - General Date of Service: 12/03/17 Admit Problem/Dx: Admission Diagnosis/Problem Admission Diagnosis/Problem Hypoxia Pt was transferred by ambulance from [facility] to ER. Nurse at [facility] stated pt was complaining of pain in her left upper chest and back. On admission to hospital floor, pt was non responsive and on a non rebreather mask, skin was cool and clammy. Family states Patient has been wanting to for quite some time and they would like her to receive comfort cares only. In discussing this patient with Dr Elizabeth Kendall, she states pt had expressed the same sentiment to her during pt's last hospital stay last week. We will provide comfort cares for this pt. Source of Information: Family, Old Records History Limitations: Reports: Other (Pt unable to communicate) - History of Present Illness Onset of Symptoms: Reports: Other (long history of severe COPD, non compliance with COPD medications. New onset of non responsiveness.) Location: Reports: Other (Severe COPD, non responsive) Severity: Severe Associated Symptoms: Reports: Diaphoresis, Shortness of Breath, Weakness, Other (Non responsive). Denies: Cough, Fever/Chills - Related Data Allergies/Adverse Reactions: Allergies Allergy/AdvReac Type Severity Reaction Status Date / Time No Known Drug Allergies Allergy NKDA Verified 12/03/17 11:10 Home Medications: Home Meds Diltiazem IR [Cardizem] 30 mg PO Q8HR #90 tablet 11/28/17 [Rx] Melatonin 6 mg PO BEDTIME #60 tablet 11/28/17 [Rx] Rivaroxaban [Xarelto] 20 mg PO DAILY@1800 #60 tablet 11/28/17 [Rx] Rup Rub 1 applic TOP BID PRN #1 11/28/17 [Rx] Sertraline [Zoloft] 100 mg PO DAILY #30 tablet 11/28/17 [Rx] Metoprolol Tartrate [Lopressor] 50 mg PO BID 12/03/17 [History] Past Medical History HEENT History: Reports: Cataract, Impaired Vision Cardiovascular History: Reports: Afib, Hypertension Respiratory History: Reports: Bronchitis, Recurrent, COPD, Other (See Below) Other Respiratory History: severe COPD, Home oxygen at 3 liters Gastrointestinal History: Reports: GERD Genitourinary History: Reports: Urinary Incontinence 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 family does not know - Past Surgical History Head Surgeries/Procedures: Reports: None HEENT Surgical History: Reports: Cataract Surgery Cardiovascular Surgical History: Reports: None Respiratory Surgical History: Reports: None GI Surgical History: Reports: None Female Surgical History: Reports: None Musculoskeletal Surgical History: Reports: None Dermatological Surgical History: Reports: None Social & Family History - Family History Family Medical History: Noncontributory - Tobacco Use Smoking Status *Q: Current Every Day Smoker (1-2 cigarettes a day) Tobacco Use Within Last Twelve Months: Cigarettes Second Hand Smoke Exposure: No - Caffeine Use Caffeine Use: Reports: Coffee, Soda, Tea - Recreational Drug Use Recreational Drug Use: No H&P Review of Systems - Review of Systems: Review Of Systems: Unable To Obtain (Pt non responsive) General: Reports: Other (diaphoretic, non responsive) Exam - Exam Exam: See Below - Vital Signs Vital Signs: Last Vital Signs Temp 97.3 F 12/03/17 13:32 Pulse 87 12/03/17 13:32 Resp 20 12/03/17 13:32 BP 108/65 12/03/17 13:32 Pulse Ox 92 L 12/03/17 13:37 Weight: 181 lb 14.4 oz - Exam Quality Assessment: Supplemental Oxygen General: Other (Non responsive) HEENT: Conjunctiva Clear Lungs: Rales, Rhonchi, Other (diminished lung sounds throughout with course crackes throughout) Cardiovascular: Tachycardia GI/Abdominal Exam: Soft Extremities: No Pedal Edema Skin: Cool, Moist Neurological: Other (Non responsive) Neuro Extensive - Mental Status: Other (no response to commands) Psychiatric: Other (Non responsive) - Patient Data Lab Results Last 24 hrs: Laboratory Results - last 24 hr 12/03/17 12/03/17 12/03/17 Range/Units 10:50 10:50 10:50 WBC 15.7 H (5.0-10.0) 10^3/uL RBC 4.42 (3.80-5.50) 10^6/uL Hgb 13.2 (12.0-16.0) g/dL Hct 42.8 (37.0-47.0) % MCV 96.8 H (82.0-92.0) fL MCH 30.0 (27.0-31.0) pg MCHC 30.9 L (32.0-36.0) g/dL RDW 14.5 (11.5-14.5) % Plt Count 311 H (150-300) 10^3/uL MPV 8.0 (7.4-10.4) fL Add Manual Diff Yes Neutrophils % (Manual) 83 H (50-70) % Band Neutrophils % 7 (4-12) % Lymphocytes % (Manual) 6 L (20-40) % Monocytes % (Manual) 4 (2-8) % Absolute Neutrophils 14.1300 Lymphocytes # (Manual) 0.9420 Monocytes # (Manual) 0.6280 Differential Comment See note Platelet Estimate Adequate Giant Platelets Rare Stomatocytes Few Schistocytes Occasional PT 11.6 H (8.9-11.4) SEC INR 1.1 (0.9-1.1) APTT 26.4 (20.8-31.2) SEC Sodium 143 (136-145) mmol/L Potassium 3.6 (3.3-5.3) mmol/L Chloride 100 (98-115) mmol/L Carbon Dioxide 34.8 H (21.0-32.0) mmol/L BUN 30 H (6-25) mg/dL Creatinine 0.62 (0.51-1.17) mg/dL Est Cr Clr Drug Dosing 75.07 mL/min Estimated GFR (MDRD) > 60 mL/min Glucose 237 H (70-110) mg/dL Calcium 9.8 (8.7-10.3) mg/dL Troponin I < 0.04 (0.00-0.070) ng/mL B-Natriuretic Peptide 313 H (0-100) pg/mL Result Diagrams: 12/03/17 10:50 12/03/17 10:50 EKG INTERPRETATION Rhythm: A-Fib (AFib with RVR) *Q Meaningful Use (ADM) - VTE *Q VTE Pharmacological Contraindications *Q: Not Candidate LT Anticoag VTE Anticoagulation Contraindications: Med/TX Not Indicated/Need Problem List Initiated/Reviewed/Updated: Yes Orders Last 24hrs: Active Orders 24 hr Category Date Time Status Patient Status [ADT] Routine ADT 12/03/17 12:07 Ordered EKG Documentation Completion [RC] ASDIRECTED Care 12/03/17 10:56 Active Oxygen Therapy [RC] PRN Care 12/03/17 12:07 Active RT Aerosol Therapy [RC] ASDIRECTED Care 12/03/17 11:01 Active VTE/DVT Education [RC] PER UNIT ROUTINE Care 12/03/17 12:07 Active Chest 1V Frontal [CR] Stat Exams 12/03/17 10:56 Taken Sodium Chloride 0.9% [Normal Saline] 1,000 ml Med 12/03/17 12:15 Active IV ASDIRECTED Antiembolic Hose [OM.PC] Per Unit Routine Oth 12/03/17 12:11 Ordered RT Suction Oropharyngeal [RESPCARE] Routine Oth 12/03/17 14:28 Ordered Sequential Compression Device [OM.PC] Per Unit Routine Oth 12/03/17 12:10 Ordered Resuscitation Status Routine Resus Stat 12/03/17 12:07 Ordered EKG 12 Lead [EK] Routine Ther 12/03/17 10:55 Ordered Medication Orders Sodium Chloride (Normal Saline) 1,000 mls @ 125 mls/hr IV ASDIRECTED POP Assessment/Plan Comment:: Pt with long history of Stage 4 very severe COPD, recent onset of Afib with RVR , hypertension, chronic pain and depression. Admitted to hospital floor non responsive. She has been expressing to her family for quite some time that she does not want to continue living. When she was hospitalized last week, she expressed to staff that she does not want to continue living. Family is in agreement that they would like her to receive comfort cares only and wanting no further work up to find etiology of non responsiveness. They will be contacting their dragline engineer for spiritual services.
[2017-12-03] MEDS: Morphine 2 MG/ML Syringe IVPUSH PRN ×2 (15:25→19:47)
[2017-12-03] MEDS: Glycopyrrolate 0.2 MG/ML 5 ML MDV IVPUSH PRN ×3 (15:34→20:39)
--- NOTE | 2017-12-03 16:09 | EDM.PDOC ---
ED HPI GENERAL MEDICAL PROBLEM - General Chief Complaint: Respiratory Problem Stated Complaint: LOW OXYGEN SATURATION Time Seen by Provider: 12/03/17 10:40 Source of Information: Reports: Family, Old Records History Limitations: Reports: Other (Pt unable to communicate) - History of Present Illness INITIAL COMMENTS - FREE TEXT/NARRATIVE: 77-year-old female brought in by EMS to the emergency room with complaints of hypoxia left chest pain. Patient was admitted for [facility] approximately one week ago after a recent inpatient stay in [facility]. That she's been having steadily declining health and has advanced stage IV COPD. Nursing staff noticed that she had been becoming increasingly unresponsive with low O2 saturations. She is on no 4 L of oxygen continuously. When she was first evaluated by EMS they noticed that she was diaphoretic and O2 saturations were 68%. They put her on a 10L nonrebreather mask and then her O2 saturations improved quickly to the low 90s. Upon seen her she reports no current chest pain she does feel short of breath she is a poor responder and takes several questions repeated to get her to answer anything I should ask her. Onset: Unknown/Unsure, Other (long history of severe COPD, non compliance with COPD medications. New onset of non responsiveness.) Duration: Getting Worse Location: Reports: Other (Severe COPD, non responsive) Severity: Severe Improves with: Reports: None Worsens with: Reports: None Associated Symptoms: Reports: Diaphoresis, Shortness of Breath, Weakness, Other (Non responsive). Denies: Cough, Fever/Chills - Related Data Allergies Allergy/AdvReac Type Severity Reaction Status Date / Time No Known Drug Allergies Allergy NKDA Verified 12/03/17 11:10 Home Meds: Home Meds Diltiazem IR [Cardizem] 30 mg PO Q8HR #90 tablet 11/28/17 [Rx] Melatonin 6 mg PO BEDTIME #60 tablet 11/28/17 [Rx] Rivaroxaban [Xarelto] 20 mg PO DAILY@1800 #60 tablet 11/28/17 [Rx] Rup Rub 1 applic TOP BID PRN #1 11/28/17 [Rx] Sertraline [Zoloft] 100 mg PO DAILY #30 tablet 11/28/17 [Rx] Metoprolol Tartrate [Lopressor] 50 mg PO BID 12/03/17 [History] Past Medical History HEENT History: Reports: Cataract, Impaired Vision Cardiovascular History: Reports: Afib, Hypertension Respiratory History: Reports: Bronchitis, Recurrent, COPD, Other (See Below) Other Respiratory History: severe COPD, Home oxygen at 3 liters Gastrointestinal History: Reports: GERD Genitourinary History: Reports: Urinary Incontinence 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 family does not know - Past Surgical History Head Surgeries/Procedures: Reports: None HEENT Surgical History: Reports: Cataract Surgery Cardiovascular Surgical History: Reports: None Respiratory Surgical History: Reports: None GI Surgical History: Reports: None Female Surgical History: Reports: None Musculoskeletal Surgical History: Reports: None Dermatological Surgical History: Reports: None Social & Family History - Family History Family Medical History: Noncontributory - Tobacco Use Smoking Status *Q: Current Every Day Smoker (1-2 cigarettes a day) Second Hand Smoke Exposure: No - Caffeine Use Caffeine Use: Reports: Coffee, Soda, Tea - Recreational Drug Use Recreational Drug Use: No ED ROS GENERAL - Review of Systems Review Of Systems: Unable To Obtain Constitutional: Reports: Fever ED EXAM, GENERAL - Physical Exam Exam: See Below Exam Limited By: Altered Mental Status General Appearance: Alert, WD/WN, Lethargic, Severe Distress Eye Exam: Bilateral Eye: EOMI, Proptosis Nose: Normal Inspection Throat/Mouth: Perioral Cyanosis Head: Atraumatic Neck: Supple Respiratory/Chest: Respiratory Distress, Decreased Breath Sounds, Accessory Muscle Use, Retractions Cardiovascular: Tachycardia, Irregularly Irregular. No: Normal Peripheral Pulses Peripheral Pulses: 0: Dorsalis Pedis (L), Dorsalis Pedis (R), 1+: Radial (L), Radial (R) GI/Abdominal: Normal Bowel Sounds, Soft, Non-Tender Back Exam: Normal Inspection Extremities: Non-Tender, Pedal Edema (mild), Slow Capillary Refill Neurological: Alert, No Motor/Sensory Deficits, Slow to Respond Psychiatric: Depressed Mood, Flat Affect Skin Exam: Cool, Diaphoretic Lymphatic: No Adenopathy EKG INTERPRETATION EKG Date: 12/03/17 Time: 10:55 Rhythm: A-Fib QRS: Normal ST-T: Other (nonspecific ST and T wave abnormality) QT: Normal Comparison: No Change EKG Interpretation Comments: Afib with RVR Course - Vital Signs Last Recorded V/S: Last Vital Signs Temp 96.2 F 12/03/17 15:00 Pulse 120 H 12/03/17 15:00 Resp 28 H 12/03/17 15:00 BP 169/82 H 12/03/17 15:00 Pulse Ox 75 L 12/03/17 15:18 - Orders/Labs/Meds Orders: Active Orders 24 hr Category Date Time Status Patient Status [ADT] Routine ADT 12/03/17 12:07 Ordered EKG Documentation Completion [RC] ASDIRECTED Care 12/03/17 10:56 Active Oxygen Therapy [RC] PRN Care 12/03/17 12:07 Active RT Aerosol Therapy [RC] ASDIRECTED Care 12/03/17 11:01 Active VTE/DVT Education [RC] PER UNIT ROUTINE Care 12/03/17 12:07 Active Chest 1V Frontal [CR] Stat Exams 12/03/17 10:56 Taken Sodium Chloride 0.9% [Normal Saline] 1,000 ml Med 12/03/17 12:15 Active IV ASDIRECTED EKG 12 Lead [EK] Routine Ther 12/03/17 10:55 Ordered Medication Orders Glycopyrrolate (Robinul) 0.2 mg IVPUSH Q2H PRN PRN Reason: Other Last Admin: 12/03/17 15:34 Dose: 0.2 mg Sodium Chloride (Normal Saline) 1,000 mls @ 125 mls/hr IV ASDIRECTED POP Lorazepam (Ativan) 1 mg IVPUSH Q1H PRN PRN Reason: Anxiety Last Admin: 12/03/17 15:30 Dose: 1 mg Morphine Sulfate (Morphine) 2 mg IVPUSH Q1H PRN PRN Reason: Pain Last Admin: 12/03/17 15:25 Dose: 2 mg Labs: Laboratory Tests 12/03/17 12/03/17 12/03/17 Range/Units 10:50 10:50 10:50 WBC 15.7 H (5.0-10.0) 10^3/uL RBC 4.42 (3.80-5.50) 10^6/uL Hgb 13.2 (12.0-16.0) g/dL Hct 42.8 (37.0-47.0) % MCV 96.8 H (82.0-92.0) fL MCH 30.0 (27.0-31.0) pg MCHC 30.9 L (32.0-36.0) g/dL RDW 14.5 (11.5-14.5) % Plt Count 311 H (150-300) 10^3/uL MPV 8.0 (7.4-10.4) fL Add Manual Diff Yes Neutrophils % (Manual) 83 H (50-70) % Band Neutrophils % 7 (4-12) % Lymphocytes % (Manual) 6 L (20-40) % Monocytes % (Manual) 4 (2-8) % Absolute Neutrophils 14.1300 Lymphocytes # (Manual) 0.9420 Monocytes # (Manual) 0.6280 Differential Comment See note Platelet Estimate Adequate Giant Platelets Rare Stomatocytes Few Schistocytes Occasional PT 11.6 H (8.9-11.4) SEC INR 1.1 (0.9-1.1) APTT 26.4 (20.8-31.2) SEC Sodium 143 (136-145) mmol/L Potassium 3.6 (3.3-5.3) mmol/L Chloride 100 (98-115) mmol/L Carbon Dioxide 34.8 H (21.0-32.0) mmol/L BUN 30 H (6-25) mg/dL Creatinine 0.62 (0.51-1.17) mg/dL Est Cr Clr Drug Dosing 75.07 mL/min Estimated GFR (MDRD) > 60 mL/min Glucose 237 H (70-110) mg/dL Calcium 9.8 (8.7-10.3) mg/dL Troponin I < 0.04 (0.00-0.070) ng/mL B-Natriuretic Peptide 313 H (0-100) pg/mL Meds: Medications Generic Name Dose Route Start Last Admin Trade Name Freq PRN Reason Stop Dose Admin Glycopyrrolate 0.2 mg 12/03/17 14:40 12/03/17 15:34 Robinul IVPUSH 0.2 mg Q2H PRN Administration Other Sodium Chloride 1,000 mls @ 125 mls/hr 12/03/17 12:15 Normal Saline IV ASDIRECTED POP Lorazepam 1 mg 12/03/17 14:38 12/03/17 15:30 Ativan IVPUSH 1 mg Q1H PRN Administration Anxiety Morphine Sulfate 2 mg 12/03/17 14:39 12/03/17 15:25 Morphine IVPUSH 2 mg Q1H PRN Administration Pain Discontinued Medications Generic Name Dose Route Start Last Admin Trade Name Freq PRN Reason Stop Dose Admin Albuterol/Ipratropium 3 ml 12/03/17 11:01 12/03/17 11:08 Duoneb 3.0-0.5 Mg/3 Ml NEB 12/03/17 11:02 3 ml ONETIME ONE Administration Metoprolol Tartrate 5 mg 12/03/17 12:13 12/03/17 11:20 Lopressor IVPUSH 12/03/17 12:14 5 mg ONETIME ONE Administration Metoprolol Tartrate Confirm 12/03/17 12:15 12/03/17 13:24 Lopressor Administered 12/03/17 12:16 Not Given Dose 5 mg .ROUTE .[facility] ONE - Re-Assessments/Exams Free Text/Narrative Re-Assessment/Exam: 12/03/17 Patient was placed on a 10 L nonrebreather mask O2 saturations improved in the 90s. Patient's cyanosis improved. Breathing was less labored and tachypnea improved. Departure - Departure Time of Disposition: 12:07 Disposition: Admitted As Inpatient 67 Clinical Impression: Hypoxia, COPD with respiratory distress, acute, Atrial fibrillation with RVR, Neutrophilic leukocytosis, Hilar mass - Discharge Information - My Orders Last 24 Hours: My Active Orders 12/03/17 10:55 EKG 12 Lead [EK] Routine 12/03/17 10:56 EKG Documentation Completion [RC] ASDIRECTED Chest 1V Frontal [CR] Stat 12/03/17 11:01 RT Aerosol Therapy [RC] ASDIRECTED 12/03/17 12:07 Patient Status [ADT] Routine Oxygen Therapy [RC] PRN VTE/DVT Education [RC] PER UNIT ROUTINE 12/03/17 12:15 Sodium Chloride 0.9% [Normal Saline] 1,000 ml IV ASDIRECTED - Assessment/Plan Last 24 Hours: My Active Orders 12/03/17 10:55 EKG 12 Lead [EK] Routine 12/03/17 10:56 EKG Documentation Completion [RC] ASDIRECTED Chest 1V Frontal [CR] Stat 12/03/17 11:01 RT Aerosol Therapy [RC] ASDIRECTED 12/03/17 12:07 Patient Status [ADT] Routine Oxygen Therapy [RC] PRN VTE/DVT Education [RC] PER UNIT ROUTINE 12/03/17 12:15 Sodium Chloride 0.9% [Normal Saline] 1,000 ml IV ASDIRECTED Assessment:: Hypoxia Severe severe COPD with respiratory distress Neutrophilic leukocytosis Hilar mass Atrial fibrillation with RVR Plan: Patient will be admitted to inpatient. 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 Patient is likely at end-stage of a life. Discussion of the family for comfort measures will be addressed.
[2017-12-03] MEDS ORDERED: Sodium Chloride 0.9% 5 ML Syringe FLUSH SCH (22:00)
[2017-12-04] MEDS: Morphine 2 MG/ML Syringe IVPUSH PRN ×2 (00:04→04:09)
[2017-12-04] MEDS: Sodium Chloride 0.9% 5 ML Syringe FLUSH PRN ×2 (00:04→00:11)
[2017-12-04] MEDS: Glycopyrrolate 0.2 MG/ML 5 ML MDV IVPUSH PRN (00:09)
[2017-12-04 06:21] VITALS: BP 90/58
--- NOTE | 2017-12-05 09:32 | PCM.DCSUM1 ---
Discharge Summary - Hospital Course Brief History: 77-year-old female who was a resident of a long-term care center was admitted through the ED after complaining of left upper chest and back pain. In the ED she had some shortness of breath. She had been recently within 1 week released from inpatient stay here at [place] due to new onset atrial fibrillation and advanced COPD long with a hilar mass Nursing staff at the custodial said she had been increasingly unresponsive with low oxygen saturations in the 60s--responding into the 90s with a nonrebreather 10 L. - Discharge Data Discharge Date: 12/05/17 Discharge Disposition: 20 Condition: - Patient Summary/Data Complications: She was in grave condition upon admission and family desired comfort care only Hospital Course: Patient's hospital stay was quite terse as she was Comfort Care only and was admitted for expected management. On admission to hospital floor, pt was non responsive and on a non rebreather mask, skin was cool and clammy. Family states patient has been wanting to for extended period of time and decided on comfort care measures only. She was a DNR and comfort care measures were given. On rounds the family asked several questions regarding the dying process and this was explained to them, she was comfortable, agonal breathing knees mottling , oxygen saturations 80s, tachycardic, however comfortable, and medications were given to dry up his oral secretions. Was notified approximately 2 hours after rounded the patient had --family was at bedside Final diagnosis Respiratory failure Likely CVA COPD stage IV Atrial fibrillation with RVR - Discharge Plan Home Medications: Home Meds Diltiazem IR [Cardizem] 30 mg PO Q8HR #90 tablet 11/28/17 [Rx] Melatonin 6 mg PO BEDTIME #60 tablet 11/28/17 [Rx] Rivaroxaban [Xarelto] 20 mg PO DAILY@1800 #60 tablet 11/28/17 [Rx] Rup Rub 1 applic TOP BID PRN #1 11/28/17 [Rx] Sertraline [Zoloft] 100 mg PO DAILY #30 tablet 11/28/17 [Rx] Metoprolol Tartrate [Lopressor] 50 mg PO BID 12/03/17 [History] Forms: ED Department Discharge Referrals: Ghazala Sotelo PA-C [Primary Care Provider] - - Discharge Summary/Plan Comment DC Time >30 min.: No - Patient Data Vitals - Most Recent: Last Vital Signs Temp 99.4 F 12/04/17 06:20 Pulse 139 H 12/04/17 06:20 Resp 22 H 12/04/17 06:20 BP 90/58 L 12/04/17 06:20 Pulse Ox 82 L 12/04/17 06:20 Weight - Most Recent: 181 lb 14.4 oz Med Orders - Current: Current Medications Discontinued Medications Albuterol/Ipratropium (Duoneb 3.0-0.5 Mg/3 Ml) 3 ml NEB ONETIME ONE Stop: 12/03/17 11:02 Last Admin: 12/03/17 11:08 Dose: 3 ml Glycopyrrolate (Robinul) 0.2 mg IVPUSH Q2H PRN PRN Reason: Other Last Admin: 12/04/17 00:09 Dose: 0.2 mg Sodium Chloride (Normal Saline) 1,000 mls @ 125 mls/hr IV ASDIRECTED POP Last Admin: 12/03/17 12:50 Dose: 125 mls/hr Lorazepam (Ativan) 1 mg IVPUSH Q1H PRN PRN Reason: Anxiety Last Admin: 12/03/17 15:30 Dose: 1 mg Metoprolol Tartrate (Lopressor) 5 mg IVPUSH ONETIME ONE Stop: 12/03/17 12:14 Last Admin: 12/03/17 11:20 Dose: 5 mg Metoprolol Tartrate (Lopressor) Confirm Administered Dose 5 mg .ROUTE .STK-MED ONE Stop: 12/03/17 12:16 Last Admin: 12/03/17 13:24 Dose: Not Given Morphine Sulfate (Morphine) 2 mg IVPUSH Q1H PRN PRN Reason: Pain Last Admin: 12/04/17 04:09 Dose: 2 mg Sodium Chloride (Syrex Flush) 5 ml FLUSH Q8HR PRN PRN Reason: flush Last Admin: 12/04/17 00:11 Dose: 5 ml *Q Meaningful Use (DIS) - VTE *Q VTE Pharmacological Contraindications *Q: Not Candidate LT Anticoag VTE Anticoagulation Contraindications: Med/TX Not Indicated/Need
== END 2017-12-04 11:30 | disposition expired | DRG 206 ==
LOC: KA.ED 10:40 → KA.MS 13:30
PROVIDERS: ADMIT Physician Assistant; ATTEND Family Medicine
DX: R06.03 Acute respiratory distress (principal); R09.02 Hypoxemia; J44.9 Chronic obstructive pulmonary disease, unspecified; D72.828 Other elevated white blood cell count; I48.91 Unspecified atrial fibrillation; I10 Essential (primary) hypertension; G89.29 Other chronic pain; K21.9 Gastro-esophageal reflux disease without esophagitis; F17.200 Nicotine dependence, unspecified, uncomplicated; Z51.5 Encounter for palliative care; Z66 Do not resuscitate; F32.9 Major depressive disorder, single episode, unspecified; Z79.899 Other long term (current) drug therapy; F17.210 Nicotine dependence, cigarettes, uncomplicated; Z79.01 Long term (current) use of anticoagulants; R91.8 Other nonspecific abnormal finding of lung field; H54.7 Unspecified visual loss; R41.82 Altered mental status, unspecified; Z99.81 Dependence on supplemental oxygen
CPT/HCPCS: 71045; 80048; 83880; 84484; 85025; 85610; 85730; 96361; 96374; 99285; J7030; 93005; 96375; J2060; J2270; J3490